=== PATIENT | female | born 1990 | race Caucasian/White ===

== ENCOUNTER 2018-03-05 12:48 | Emergency (ER) | payer OTHER ==
[~2018-03-05] VITALS: Ht 172.7 cm; Wt 68.0 kg
[2018-03-05 13:17] LABS: URINE BILIRUBIN NEGATIVE (Negative); URINE BLOOD NEGATIVE (Negative); URINE CLARITY CLEAR; URINE COLOR YELLOW; URINE GLUCOSE-RANDOM* NEGATIVE (Negative); URINE KETONES NEGATIVE (Negative); URINE NITRITE-REFLEX NEGATIVE (Negative); URINE PROTEIN (DIPSTICK) NEGATIVE (Negative); URINE UROBILINOGEN 0.2 E.U./dl (0.2-1.0)
[2018-03-05 13:19] LABS: URINE LEUKOCYTES-REFLEX 1+ (Negative)
[2018-03-05 13:36] LABS: ABSOLUTE NEUTROPHILS 5.6 thou/uL (1.4-8.2); BASOPHILS 0.7 % (0.0-2.0); EOSINOPHILS 2.8 % (0.0-3.0); HEMATOCRIT 42.5 % (37.0-47.0); HEMOGLOBIN 14.8 gm/dL (12.0-15.0); LYMPHOCYTES 21.9 % (24.0-44.0); MCH 29.5 pg (26.0-34.0); MCHC 34.9 g/dL (28.0-37.0); MCV 84.5 fL (80.0-100.0); MONOCYTES 7.8 % (1.0-8.0); PLATELET COUNT 218 thou/uL (150-400); POLYS 66.8 % (36.0-66.0); RBC 5.03 mil/uL (4.20-5.00); RDW 13.5 % (10.5-14.5); WBC 8.4 thou/uL (4.0-11.0)
[2018-03-05 13:42] LABS: CALCIUM 8.6 mg/dL (8.5-10.1); CREATININE 0.8 mg/dL (0.6-1.0); POTASSIUM 3.9 mmol/L (3.5-5.1)
[2018-03-05 13:48] LABS: ALBUMIN 3.8 g/dL (3.4-5.0); TOTAL BILIRUBIN 0.1 mg/dL (<0.1-1.0)
[2018-03-05 13:51] LABS: SQUAMOUS 0-3 Few /LPF (0-3)
[2018-03-05 13:52] LABS: BACTERIA-REFLEX 1-9 Few /HPF (None Seen); CASTS None Seen /LPF (None Seen); CRYSTALS None Seen /LPF (None Seen); URINE RBC None Seen /HPF (0-2); URINE WBC-REFLEX 6-15 Few /HPF (0-5)
[2018-03-05] MEDS ORDERED: DOXYCYCLINE 10100 MG PO (15:24)
[2018-03-05] MEDS ORDERED: HYDROCODONE-AP1 EAC6 PO (15:24)
[2018-03-05] MEDS ORDERED: FLAGYL500 MG PO (15:24)
[2018-03-05 15:51] VITALS: BP 111/78
== END 2018-03-05 15:54 | disposition home or self-care (01) ==
LOC: ER 12:48
PROVIDERS: Physician Assistant
DX: N73.9 Female pelvic inflammatory disease, unspecified (principal); A59.01 Trichomonal vulvovaginitis; N39.0 Urinary tract infection, site not specified; J45.909 Unspecified asthma, uncomplicated; Z90.49 Acquired absence of other specified parts of digestive tract

== ENCOUNTER 2018-10-22 17:11 | Emergency (ER) | payer OTHER ==
[~2018-10-22] VITALS: Ht 172.7 cm; Wt 68.0 kg
[~2018-10-22 17:11] MED LIST: DOXYCYCLINE 10100 MG PO; FLAGYL500 MG PO; HYDROCODONE-AP1 EAC6 PO
[2018-10-22 17:12] VITALS: BP 143/88
[2018-10-22] MEDS ORDERED: PENICILLIN V P500 MG PO (17:35)
[2018-10-22] MEDS ORDERED: NAPROSYN500 MG PO (17:35)
[2018-10-22] MEDS ORDERED: ULTRAM 50MG TAB50 MG PO (17:35)
== END 2018-10-22 17:49 | disposition home or self-care (01) ==
LOC: ER 17:11
DX: K05.00 Acute gingivitis, plaque induced (principal); K02.9 Dental caries, unspecified; J45.909 Unspecified asthma, uncomplicated; F17.200 Nicotine dependence, unspecified, uncomplicated; Z90.49 Acquired absence of other specified parts of digestive tract; Z88.8 Allergy status to other drugs, medicaments and biological substances

== ENCOUNTER 2019-08-13 14:57 | Emergency (ER) | payer OTHER ==
[~2019-08-13] VITALS: Ht 172.7 cm; Wt 68.0 kg
[~2019-08-13 14:57] MED LIST changes: +NAPROSYN500 MG PO; +PENICILLIN V P500 MG PO; +ULTRAM 50MG TAB50 MG PO
[2019-08-13] MEDS ORDERED: LORCET 5-325 M1 EACH PO (15:31)
[2019-08-13 17:34] LABS: AMP/METHAMP Negative (Negative); BARBITURATES Negative (Negative); BENZODIAZEPINES Negative (Negative); COCAINE Negative (Negative); METHADONE Negative (Negative); OPIATES POSITIVE (Negative); PCP Negative (Negative)
[2019-08-13] MEDS ORDERED: VALIUM5 MG PO (18:06)
[2019-08-13 18:19] VITALS: BP 119/64
== END 2019-08-13 18:20 | disposition home or self-care (01) ==
LOC: ER 14:57
PROVIDERS: Emergency Medicine
DX: M26.621 Arthralgia of right temporomandibular joint (principal); J45.909 Unspecified asthma, uncomplicated; Z90.49 Acquired absence of other specified parts of digestive tract; Z88.8 Allergy status to other drugs, medicaments and biological substances; Z79.899 Other long term (current) drug therapy